=== PATIENT | female | born 1995 | race Caucasian/White ===

== ENCOUNTER 2021-08-07 12:46 | Outpatient (CLI) | payer MEDICAID ==
[2021-08-07] VITALS (10 sets, daily range): BP systolic 130–158; BP diastolic 62–92; PULSE 98–125; TEMP 99.2–100.3
[~2021-08-07] VITALS: Ht 149.9 cm; Wt 115.5 kg
--- NOTE | 2021-08-07 12:45 | NUR ---
Pt arrived on unit via wheelchair with complaints of contractions every 10 minutes. Pt denies any leaking of fluid or vaginal bleeding and reports normal movement. EFM and toco monitors started. SVE done per this RN FT/thick/high.
[2021-08-07] MEDS ORDERED: PRENATAL (12:51)
--- NOTE | 2021-08-07 13:00 | NUR ---
Pt reports feeling contractions every 10 mins. Frequent attempts to adjust toco monitors and no contractions palpated by this RN when pt reports feeling a contraction starting.
--- NOTE | 2021-08-07 13:30 | NUR ---
Frequent attempts to adjust toco monitor as pt reports still feeling contractions every 10 minutes.
[2021-08-07 13:56] LABS: BASO % 0.2 % (0.0-2.0); EOS % 0.1 % (0.0-4.0); GRAN # 15.1 K/mm3 (1.4-6.5); GRAN % 82.7 % (42.2-75.2); HEMOGLOBIN 10.5 g/dl (12.5-16.0); LYMPH # 2.1 K/mm3 (1.2-3.4); LYMPH % 11.7 % (20.0-51.0); MEAN CELL VOLUME 86 fl (80.0-100.0); MEAN CORPUSCULAR HEMOGLOBIN 29 pg (27-31); MEAN CORPUSCULAR HGB CONC 34 g/dl (33.0-37.0); MEAN PLATELET VOLUME 11.9 fl (7.4-10.4); MONO # 0.8 K/mm3 (0.1-0.6); MONO % 4.6 % (1.7-9.3); PLATELET COUNT 202 K/mm3 (130-400); RED BLOOD COUNT 3.61 M/mm3 (4.10-5.30); REDCELL DISTRIBUTION WIDTH-CV 13.2 % (11.5-14.5)
[2021-08-07 14:01] LABS: HEMATOCRIT 31.1 % (37.0-47.0)
[2021-08-07 14:18] LABS: COLLECTION METHOD CLEAN CATCH
[2021-08-07 14:21] LABS: ALBUMIN 2.7 gm/dL (3.5-5.0); BILIRUBIN,TOTAL 0.3 mg/dL (0.2-1.2); CALCIUM 8.2 mg/dL (8.4-10.2); CREATININE, serum 0.68 mg/dL (0.57-1.11); POTASSIUM 3.9 mmol/L (3.5-4.5); TOTAL PROTEIN 5.9 gm/dL (6.2-8.1)
[2021-08-07 14:25] LABS: MUCOUS Present (NOT PRESENT); PH 7 (5-8); URINE APPEARANCE Hazy (CLEAR/HAZY); URINE BACTERIA Rare /hpf (NONE SEEN); URINE BILIRUBIN Negative (NEGATIVE); URINE BLOOD Negative (NEGATIVE); URINE COLOR Yellow (YELLOW); URINE GLUCOSE Negative (NEGATIVE); URINE KETONE Negative (NEGATIVE); URINE LEUKOCYTE ESTERASE 1+ (NEGATIVE); URINE NITRATE Negative (NEGATIVE); URINE PROTEIN(semi-quant) Negative (NEGATIVE); URINE RBC 0-2 /hpf (0-2); URINE UROBILINOGEN Negative (NEGATIVE)
--- NOTE | 2021-08-07 14:30 | NUR ---
SVE by this RN with no change. Pt reports feeling a little better.
--- NOTE | 2021-08-07 14:35 | NUR ---
Discharge instructions and follow up care reviewed with pt and at the bedside. Both verbalized an understanding, agreed with the plan and states no questions or concerns at this time. Antibiotic prescription called in to [facility] pharmacy in [place] per pt's request.
== END 2021-08-07 15:00 | disposition home or self-care (01) ==
LOC: LDRO 12:46
PROVIDERS: Obstetrics & Gynecology
DX: Z34.93 Encounter for supervision of normal pregnancy, unspecified, third trimester (principal); Z3A.39 39 weeks gestation of pregnancy

== ENCOUNTER → 2023-10-05 | Outpatient (CLI) | payer OTHER ==
[~2023-10-05] MED LIST: ADALAT CC60 MG PO; AMOXICILLIN 8751 TAB PO; FASTIN30 MG PO; IBU600 MG PO; MULTIPLE VITAMI1 CAP PO; NORCO 325 MG-51 TAB PO; OSCAL 500 TAB500 MG PO; PERCOCET 325 MG1 TA2 PO; PHENTERMINE15 MG PO; PRENATAL; PROBIOTIC BLEN1 EACH PO; ROXICODONE 55 MG/TAB PO; ZOFRAN ODT4 MG PO
== END ==
LOC: COL.RAD 09:29
DX: M51.37 Other intervertebral disc degeneration, lumbosacral region (principal); S39.012A Strain of muscle, fascia and tendon of lower back, initial encounter; M25.561 Pain in right knee; V89.2XXA Person injured in unspecified motor-vehicle accident, traffic, initial encounter